=== PATIENT | female | born 1960 | race Caucasian/White ===

== ENCOUNTER 2017-07-04 13:54 | Emergency (ER) | payer SELFPAY ==
[~2017-07-04] VITALS: Ht 170.2 cm; Wt 80.0 kg
[2017-07-04] MEDS ORDERED: ULTRAM50 M1 PO (14:29)
[2017-07-04] MEDS ORDERED: SYNTHROID100 MCG PO (14:29)
[2017-07-04] MEDS ORDERED: LITHIUM CARB150 MG PO (14:31)
[2017-07-04] MEDS ORDERED: LITHIUM CARB300 MG PO (14:32)
[2017-07-04] MEDS ORDERED: ALPRAZOLAM1 MG PO (14:33)
[2017-07-04] MEDS ORDERED: FENOFIBRATE MI134 MG PO (14:33)
[2017-07-04] MEDS ORDERED: NORCO1 TA2 PO (14:34)
[2017-07-04] MEDS ORDERED: VITAMIN D50000 UNIT PO (14:35)
[2017-07-04 14:40] VITALS: BP 147/93
== END 2017-07-04 14:40 | disposition home or self-care (01) | DRG 93 ==
LOC: ED 13:54
DX: G89.29 Other chronic pain (principal); M25.552 Pain in left hip; Z76.0 Encounter for issue of repeat prescription